=== PATIENT | female | born 1965 | race Two or more races ===

== ENCOUNTER 2017-09-04 04:26 | Emergency (ER) | payer MEDICAID ==
[~2017-09-04] VITALS: Ht 154.9 cm; Wt 72.6 kg
[2017-09-04] MEDS ORDERED: cloNIDine HCL 0.1 MG TAB PO ONE (04:45)
[2017-09-04 05:15] LABS: Albumin 4.1 g/dL (3.4-5.0); BUN/Creatinine Ratio 21.3; Calcium 9.6 mg/dL (8.5-10.1); Potassium 3.6 mmol/L (3.5-5.1)
[2017-09-04 05:20] LABS: Bilirubin, Total 0.3 mg/dL (0.2-1.0); Total Protein 8.2 g/dL (6.4-8.2)
[2017-09-04 05:37] LABS: Basophils # (auto) 0 uL; Basophils % (auto) 0.4 % (0.0-2.0); Eosinophils # (auto) 0.2 uL; Eosinophils % (auto) 1.8 % (0.0-7.0); Hematocrit 41.4 % (36.0-46.0); Hemoglobin 14.3 g/dL (12.2-16.2); Lymphocytes # (auto) 1.8 uL; Lymphocytes % (auto) 17.4 % (10.0-50.0); Mean Corpuscular Hemoglobin 33.1 pg (28.0-32.0); Mean Corpuscular Hgb Conc. 34.6 g/dL (32.0-36.0); Mean Corpuscular Volume 95.8 fL (80.0-100.0); Monocytes # (auto) 0.7 uL; Monocytes % (auto) 6.9 % (0.0-12.0); Neutrophils # (auto) 7.8 uL; Neutrophils % (auto) 73.5 % (37.0-80.0); Nucleated Red Blood Cells % 0.1 %; Platelet Count (auto) 240 10^3/uL (140-450); Red Blood Cells 4.32 10^6/uL (4.0-5.20); Red Cell Distribution Width 13.8 % (11.8-14.3); White Blood Cell 10.6 10^3/uL (4.4-10.8)
[2017-09-04] MEDS ORDERED: SODIUM CHLORIDE 0.9% 1,000 ML IV ONE (07:06)
[2017-09-04] MEDS ORDERED: METOCLOPRAMIDE HCL 5MG/ml INJ 2ml VIAL IV ONE (07:15)
[2017-09-04] MEDS ORDERED: KETOROLAC TROMETH 30 MG/ML 1ML VIAL IV ONE (07:15)
[2017-09-04 12:33] LABS: Urine Bacteria NONE SEEN /hpf (None Seen); Urine Blood Negative /uL (Negative); Urine Mucus FEW (None Seen); Urine Specific Gravity 1.011 (1.001-1.035); Urine WBC 3 /hpf (0 - 5)
[2017-09-04 13:49] VITALS: BP 119/68
== END 2017-09-04 13:51 | disposition home or self-care (01) ==
LOC: ER 04:28
DX: G91.1 Obstructive hydrocephalus (principal); I10 Essential (primary) hypertension; R53.83 Other fatigue
CPT/HCPCS: 36415; 70450; 71045; 80053; 81001; 83735; 84443; 84484; 85025; 87400; 93005; 94761; 96361; 96374; 96375; 99285; J1885; J2765; J7030

== ENCOUNTER 2022-04-18 21:17 | Inpatient (IN) | payer MEDICAID ==
[~2022-04-18] VITALS: Ht 154.9 cm; Wt 80.4 kg
[2022-04-18 21:50] LABS: Basophils # (auto) 0 10 ^3/uL (0-0.2); Basophils % (auto) 0.5 % (0.0-2.0); Eosinophils # (auto) 0.3 10 ^3/uL (0-0.8); Eosinophils % (auto) 3.9 % (0.0-7.0); Hematocrit 42.5 % (36.0-46.0); Hemoglobin 14.3 g/dL (12.2-16.2); Lymphocytes # (auto) 2.8 10 ^3/uL (0.4-5.4); Lymphocytes % (auto) 38.4 % (10.0-50.0); Mean Corpuscular Hemoglobin 31.7 pg (28.0-32.0); Mean Corpuscular Hgb Conc. 33.7 g/dL (32.0-36.0); Monocytes # (auto) 0.6 10 ^3/uL (0-1.3); Monocytes % (auto) 7.9 % (0.0-12.0); Neutrophils # (auto) 3.6 10 ^3/uL (1.6-8.6); Neutrophils % (auto) 49.3 % (37.0-80.0); Nucleated Red Blood Cells % 0.1 %; Red Blood Cells 4.52 10^6/uL (4.0-5.20); Red Cell Distribution Width 13.9 % (11.8-14.3); White Blood Cell 7.4 10^3/uL (4.4-10.8)
[2022-04-18 21:56] LABS: Urine Bacteria FEW /hpf (None Seen); Urine Blood Negative /uL (Negative); Urine Specific Gravity 1.009 (1.001-1.035); Urine WBC 1 /hpf (0 - 5)
[2022-04-18 22:07] LABS: Albumin 4.2 g/dL (3.4-5.0); BUN/Creatinine Ratio 22.8; Calcium 9.5 mg/dL (8.5-10.1); Potassium 3.6 mmol/L (3.5-5.1)
[2022-04-18 22:10] LABS: Bilirubin, Total 0.4 mg/dL (0.2-1.0); Total Protein 7.8 g/dL (6.4-8.2)
[2022-04-18] MEDS ORDERED: ASPirin 325 MG TAB PO ONE (23:45)
[2022-04-19] MEDS ORDERED: DOCUSATE SOD 100 MG CAP PO PRN (00:15)
[2022-04-19] MEDS ORDERED: ACETAMINOPHEN 325 MG TAB PO PRN (00:15)
[2022-04-19] MEDS ORDERED: hydrALAZINE HCL 20 MG/ML VL IV PRN (00:15)
[2022-04-19] MEDS ORDERED: MORPHINE SULFATE INJ 2 MG/ml SYRG IV PRN ×2 (00:15→01:30)
[2022-04-19] MEDS ORDERED: ONDANSETRON HCL 4 MG/2 ML VIAL IV PRN (00:15)
[2022-04-19] MEDS ORDERED: TEMAZEPAM 15 MG CAP PO PRN (00:15)
[2022-04-19] MEDS ORDERED: HYDROcodone-ACET 5/325MG TAB PO PRN (00:15)
[2022-04-19] MEDS ORDERED: NITROGLYCERIN 0.4 MG SL TAB SL PRN (01:30)
[2022-04-19] MEDS: SODIUM CHLOR 0.9% PF (SALINE LOCK) 10ML VIAL/SYR IV SCH ×3 (06:10→21:48)
[2022-04-19 06:56] LABS: Basophils # (auto) 0 10 ^3/uL (0-0.2); Basophils % (auto) 0.5 % (0.0-2.0); Eosinophils # (auto) 0.2 10 ^3/uL (0-0.8); Hematocrit 42.5 % (36.0-46.0); Hemoglobin 14.1 g/dL (12.2-16.2); Lymphocytes % (auto) 36.3 % (10.0-50.0); Mean Corpuscular Hemoglobin 31.3 pg (28.0-32.0); Mean Corpuscular Hgb Conc. 33.3 g/dL (32.0-36.0); Monocytes # (auto) 0.4 10 ^3/uL (0-1.3); Monocytes % (auto) 7.2 % (0.0-12.0); Neutrophils # (auto) 2.9 10 ^3/uL (1.6-8.6); Red Blood Cells 4.52 10^6/uL (4.0-5.20); Red Cell Distribution Width 13.9 % (11.8-14.3); White Blood Cell 5.5 10^3/uL (4.4-10.8)
[2022-04-19 07:03] LABS: Albumin 3.9 g/dL (3.4-5.0); Calcium 9.3 mg/dL (8.5-10.1); Potassium 3.7 mmol/L (3.5-5.1)
[2022-04-19 07:07] LABS: BUN/Creatinine Ratio 25.9; Bilirubin, Total 0.7 mg/dL (0.2-1.0); Total Protein 7.5 g/dL (6.4-8.2)
[2022-04-19] MEDS: LEVOTHYROXINE SODIUM 25 MCG TAB PO SCH (07:44)
[2022-04-19 08:46] LABS: Albumin 3.8 g/dL (3.4-5.0); Calcium 9.1 mg/dL (8.5-10.1); Potassium 3.4 mmol/L (3.5-5.1)
[2022-04-19 08:49] LABS: Bilirubin, Total 0.6 mg/dL (0.2-1.0); Total Protein 7.6 g/dL (6.4-8.2)
[2022-04-19 09:18] LABS: BUN/Creatinine Ratio 19.7
[2022-04-19] MEDS ORDERED: METOPROLOL TARTRATE 25 MG TAB PO SCH (10:00)
[2022-04-19] MEDS: amLODIPine BESYLATE 5 MG TAB PO SCH (10:12)
[2022-04-19] MEDS: ASPirin 81 mg TAB PO SCH (10:12)
[2022-04-19 13:00] VITALS: BP 181/81
[2022-04-19] MEDS ORDERED: AML5T PO (14:38)
[2022-04-19] MEDS ORDERED: LEV50T PO (14:38)
[2022-04-19] MEDS ORDERED: HCTZ 25 MG TAB PO ONE (14:45)
[2022-04-19] MEDS ORDERED: LOSARTAN POTASSIUM 25 MG TAB PO ONE (14:45)
[2022-04-19 16:56] VITALS: BP 142/71
[2022-04-19] MEDS: ATORVASTATIN 20 MG TAB PO SCH (21:48)
[2022-04-19 22:49] VITALS: BP 143/76
[2022-04-20] VITALS (7 sets, daily range): BP systolic 134–158; BP diastolic 70–97
[2022-04-20] MEDS: SODIUM CHLOR 0.9% PF (SALINE LOCK) 10ML VIAL/SYR IV SCH ×3 (05:19→21:17)
[2022-04-20] MEDS: LEVOTHYROXINE SODIUM 25 MCG TAB PO SCH (05:19)
[2022-04-20 06:12] LABS: Basophils # (auto) 0 10 ^3/uL (0-0.2); Basophils % (auto) 0.5 % (0.0-2.0); Eosinophils # (auto) 0.3 10 ^3/uL (0-0.8); Eosinophils % (auto) 5.2 % (0.0-7.0); Hematocrit 42.2 % (36.0-46.0); Hemoglobin 13.9 g/dL (12.2-16.2); Lymphocytes # (auto) 2.3 10 ^3/uL (0.4-5.4); Lymphocytes % (auto) 36.1 % (10.0-50.0); Mean Corpuscular Hemoglobin 31.3 pg (28.0-32.0); Monocytes # (auto) 0.5 10 ^3/uL (0-1.3); Monocytes % (auto) 8.3 % (0.0-12.0); Neutrophils # (auto) 3.2 10 ^3/uL (1.6-8.6); Neutrophils % (auto) 49.9 % (37.0-80.0); Nucleated Red Blood Cells % 0.1 %; Red Blood Cells 4.44 10^6/uL (4.0-5.20); Red Cell Distribution Width 13.9 % (11.8-14.3); White Blood Cell 6.4 10^3/uL (4.4-10.8)
[2022-04-20 06:30] LABS: Albumin 3.6 g/dL (3.4-5.0); Calcium 9.4 mg/dL (8.5-10.1); Potassium 3.6 mmol/L (3.5-5.1)
[2022-04-20 06:35] LABS: BUN/Creatinine Ratio 23.4; Bilirubin, Total 0.6 mg/dL (0.2-1.0); Total Protein 7.4 g/dL (6.4-8.2)
[2022-04-20] MEDS ORDERED: ADENOSINE 66 MG in GIVE UN-DILUTED 0 ML IV STA (08:13)
[2022-04-20] MEDS: ASPirin 81 mg TAB PO SCH (10:00)
[2022-04-20] MEDS: amLODIPine BESYLATE 5 MG TAB PO SCH (10:00)
[2022-04-20] MEDS: LOSARTAN POTASSIUM 25 MG TAB PO SCH (10:00)
[2022-04-20] MEDS: HCTZ 25 MG TAB PO SCH (10:00)
[2022-04-20] MEDS ORDERED: IOHEXOL 350 MG/ML 100ML IJ ONE (14:40)
[2022-04-20] MEDS: ATORVASTATIN 20 MG TAB PO SCH (21:17)
[2022-04-21] VITALS: BP 144/77
[2022-04-21 05:00] VITALS: BP 142/74
[2022-04-21] MEDS: LEVOTHYROXINE SODIUM 25 MCG TAB PO SCH (06:31)
[2022-04-21] MEDS: SODIUM CHLOR 0.9% PF (SALINE LOCK) 10ML VIAL/SYR IV SCH ×2 (06:31→14:00)
[2022-04-21 06:37] LABS: Albumin 3.6 g/dL (3.4-5.0); Calcium 9.4 mg/dL (8.5-10.1); Potassium 3.7 mmol/L (3.5-5.1)
[2022-04-21 06:40] LABS: Bilirubin, Total 0.5 mg/dL (0.2-1.0); Total Protein 6.8 g/dL (6.4-8.2)
[2022-04-21 08:00] VITALS: BP 62/83
[2022-04-21] MEDS: LOSARTAN POTASSIUM 25 MG TAB PO SCH (10:09)
[2022-04-21] MEDS: amLODIPine BESYLATE 5 MG TAB PO SCH (10:10)
[2022-04-21] MEDS: HCTZ 25 MG TAB PO SCH (10:11)
[2022-04-21] MEDS: ASPirin 81 mg TAB PO SCH (10:12)
[2022-04-21 13:00] VITALS: BP 168/80
[2022-04-21] MEDS ORDERED: ATOR20TA50 PO (14:02)
[2022-04-21] MEDS ORDERED: PANT40TA2 PO (14:02)
[2022-04-21] MEDS ORDERED: LOSA-69 PO (14:02)
[2022-04-21 15:28] VITALS: BP 145/78
[2022-04-23 11:48] LABS: Hepatitis B Surface Antibody Positive (Negative)
[2022-04-23 12:17] LABS: Hepatitis A Total Antibody Positive (Negative)
[2022-04-23 16:02] LABS: Hepatitis C Antibody Negative (Negative)
== END 2022-04-21 14:20 | disposition home or self-care (01) | DRG 203 ==
LOC: ER 21:17 → TELE 04-19 01:24 → TELE-WESTW 04-19 12:44
PROVIDERS: ADMIT Nurse Practitioner Family; ATTEND Hospitalist
DX: R07.89 Other chest pain (principal); E66.9 Obesity, unspecified; K80.20 Calculus of gallbladder without cholecystitis without obstruction; E87.6 Hypokalemia; R74.8 Abnormal levels of other serum enzymes; R77.8 Other specified abnormalities of plasma proteins; Z20.822 Contact with and (suspected) exposure to COVID-19; I10 Essential (primary) hypertension; Z68.33 Body mass index [BMI] 33.0-33.9, adult; Z79.899 Other long term (current) drug therapy; Z83.3 Family history of diabetes mellitus
CPT/HCPCS: 36415; 71045; 71275; 76705; 78452; 80053; 80061; 81001; 82728; 84443; 84484; 85025; 86038; 86704; 86706; 86708; 86803; 87340; 93005; 93017; G0378; J0153